=== PATIENT | male | born 1940 | race Caucasian/White ===

== ENCOUNTER 2019-12-15 09:00 | Outpatient (RCR) | payer MEDICARE, SELFPAY ==
[2019-09-16 09:19] VITALS: PULSE 67
--- NOTE | 2019-10-25 15:57 | PCCPR ---
Dr Manley's office Responded they reviewed the rhythm strips sent and want us to continue to monitor not changes at this time.
--- NOTE | 2019-11-08 09:22 | PCCPR ---
Absent due to Cardioversion/ Release to resume rehab Release brooke from Dr Manley for Ander to resume rehab 11/14/19
== END 2019-12-15 23:59 | disposition home or self-care (01) ==
LOC: ANHCPREHAB 09:00
PROVIDERS: PCP Family Medicine
DX: Z95.1 Presence of aortocoronary bypass graft (principal)
CPT/HCPCS: 93798

== ENCOUNTER 2019-12-19 11:09 | Outpatient (RCR) | payer MEDICARE, SELFPAY | END 2019-12-19 12:13 | disposition home or self-care (01) | LOC: ANHCPREHAB 11:09 | PROVIDERS: PCP Family Medicine | DX: Z95.1 Presence of aortocoronary bypass graft (principal) | CPT/HCPCS: 93798 ==

== ENCOUNTER 2020-12-10 01:35 | Day surgery (SDC) | payer MEDICARE, SELFPAY ==
[2020-12-03 10:38] VITALS: BMI 31.2
[2020-12-10 06:55] VITALS: BP 147/55; PULSE 57; RESP 20; TEMP 36.6; O2SAT 100; BMI 31.5
[2020-12-10] MEDS: LACTATED RINGERS 1,000 ML 150 ML IV CONT (07:14)
--- NOTE | 2020-12-10 07:19 | WPDANESEPPF ---
Anes - Initial Pre Proc Eval Procedure: Operation Date: 12/10/20 08:00 Proposed Procedures p Screening Colonoscopy - Jericho Null MD Date/Time: 12/10/20 07:19 Surgeon: Jericho Null MD Pre Op Diagnosis: neoplasm screen, hx colon polyps Patient Data Age: 80 Gender: M Height: 1.83 m Weight: 105.5 kg Last Vital Signs Temp 36.6 C 12/10/20 06:55 Pulse 57 L 12/10/20 06:55 Resp 20 12/10/20 06:55 BP 147/55 H 12/10/20 06:55 Pulse Ox 100 12/10/20 06:55 Allergies Allergy/AdvReac Type Severity Reaction Status Date / Time atorvastatin AdvReac Intermediate Muscle pain Verified 12/10/20 06:52 Home Medications Medication Instructions Recorded Confirmed Type carvedilol 6.25 mg PO BID 09/16/19 12/10/20 History clorazepate dipotassium 7.5 mg PO BID PRN 09/16/19 12/10/20 History losartan 25 mg PO DAILY 10/20/19 12/10/20 History rosuvastatin 20 mg tablet 20 mg PO DAILY #90 tablet 09/26/20 12/10/20 Rx aspirin [Adult Aspirin] 81 mg PO DAILY 12/03/20 12/10/20 History docusate sodium [Colace] 100 mg PO DAILY 12/03/20 12/10/20 History pt-vb-bjjv-FA-Ca carb-vit K 1 tablet PO DAILY 12/03/20 12/10/20 History [Women's 50 Plus Multivit-Iron] rivaroxaban [Xarelto] 20 mg PO DAILY 12/03/20 12/10/20 History Patient hx anesthesia problems: none Family hx anesthesia problems: none Results Review: All pre-operative results and documents have been reviewed as part of the pre-operative evaluation. 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 Hx of CABG Family History Family History Father Family history of cardiovascular disease Hypertension Acute myocardial infarction Grandparent Diabetes mellitus Mother Patient's mother is Family history of malignant neoplasm of breast Other Family history of elevated blood lipids Social History Social History Smoking packs per day: 1 Smoking cigarettes per day: 20.0 Years smoked: 15 Smoking pack-years: 15.00 Smoking status: Former smoker Tobacco type: cigarettes Second hand tobacco smoke exposure: No Smoking end date: 02/09/74 Alcohol intake: current Drinks per week: 9 Alcohol use details: BEERS Substance use: never Substance use type: does not use Living arrangements: with family Spiritual care concerns: No Anes - Eval Final PreProcedure Day of Procedure 12/10/20 07:19 Patient weight: obese Heart: regular rate and rhythm Lungs: clear to auscultation Airway: Mallampati scale class II Neurological: alert and oriented Last oral intake: >/= 8 hours ASA classification: III Emergent: no Anesthetic plan: proceed Anesthesia type and monitoring: general GIVS and standard monitoring Results Review: All pre-operative results and documents have been reviewed as part of the pre-operative evaluation. Informed Consent: The patient's anesthetic plan and its attendant risks and benefits were discussed with the patient/family/POA. Questions were solicited and answers provided to the satisfaction of the patient/family/POA.
--- NOTE | 2020-12-10 07:51 | WPDGICN ---
Assessment and Plan Assessment and plan (1) Personal history of colonic polyps: Code(s): Z86.010 - Personal history of colonic polyps Status: Acute Assessment and Plan: Patient has a personal history of colon polyps. For this reason surveillance colonoscopy has been advised at intervals. Further recommendations will be given after endoscopy. High-fiber diet suggested. GI Consult Note Consult date/time: 12/10/20 07:51 HPI: Getachew Lyon is a 80 year old male Presents for screening colonoscopy. Patient has a distant history of colon polyps. Reports that his current weight appetite and bowel movements are normal. He denies abdominal pain. He has had no bleeding. Does have a past history of perforation of the colon apparently from diverticulitis. This required resection Of a portion of his colon. Most recent colonoscopy 2013 revealed no evidence of colon polyps. 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 Diverticulosis Former smoker quit 1974 Herpes zoster without complication Osteitis deformans of multiple sites Recurrent incisional hernia Spinal stenosis, lumbar region, with neurogenic claudication (02/16/18) Ventral hernia without obstruction or gangrene Surgical History Surgical History Colostomy status History of 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 Hx of CABG Family History Family History Father Family history of cardiovascular disease Hypertension Acute myocardial infarction Grandparent Diabetes mellitus Mother Patient's mother is Family history of malignant neoplasm of breast Other Family history of elevated blood lipids Social History Social History Smoking packs per day: 1 Smoking cigarettes per day: 20.0 Years smoked: 15 Smoking pack-years: 15.00 Smoking status: Former smoker Tobacco type: cigarettes Second hand tobacco smoke exposure: No Smoking end date: 02/09/74 Alcohol intake: current Drinks per week: 9 Alcohol use details: BEERS Substance use: never Substance use type: does not use Living arrangements: with family Spiritual care concerns: No Meds Home Medications and Allergies Home Medications Medication Instructions Recorded Confirmed Type carvedilol 6.25 mg PO BID 09/16/19 12/10/20 History clorazepate dipotassium 7.5 mg PO BID PRN 09/16/19 12/10/20 History losartan 25 mg PO DAILY 10/20/19 12/10/20 History rosuvastatin 20 mg tablet 20 mg PO DAILY #90 tablet 09/26/20 12/10/20 Rx aspirin [Adult Aspirin] 81 mg PO DAILY 12/03/20 12/10/20 History docusate sodium [Colace] 100 mg PO DAILY 12/03/20 12/10/20 History ow-ni-jkto-FA-Ca carb-vit K 1 tablet PO DAILY 12/03/20 12/10/20 History [Women's 50 Plus Multivit-Iron] rivaroxaban [Xarelto] 20 mg PO DAILY 12/03/20 12/10/20 History Allergies Allergy/AdvReac Type Severity Reaction Status Date / Time atorvastatin AdvReac Intermediate Muscle pain Verified 12/10/20 06:52 Vital Signs Vital Signs - 24 hr 12/10/20 06:55 Temperature 97.8 F Pulse Rate 57 L Respiratory Rate 20 Blood Pressure 147/55 H Pulse Oximetry 100 Exam Narrative: physical exam reveals patient to be alert. Vital signs stable. HEENT exam is unremarkable. Patient is anicteric. Lungs are clear to auscultation and percussion. Heart is without murmur or extra sounds. Abdominal exam bowel sounds are present soft nontender with no organomegaly. Digital external rectal exam is normal.
[2020-12-10 08:17] VITALS: BP 87/49; PULSE 55; RESP 20; O2SAT 96
[2020-12-10 08:27] VITALS: BP 101/59; PULSE 53; RESP 20; O2SAT 96
[2020-12-10 08:36] VITALS: BP 131/53; PULSE 61; RESP 20; O2SAT 98
== END 2020-12-10 08:45 | disposition home or self-care (01) ==
PROVIDERS: PCP Family Medicine; Visit Provider Internal Medicine Gastroenterology
PROC: 0DJD8ZZ Inspection of Lower Intestinal Tract, Via Natural or Artificial Opening Endoscopic (ICD-10-PCS; CPT 45378; principal; 2020-12-10 08:00)
DX: Z12.11 Encounter for screening for malignant neoplasm of colon (principal); D12.5 Benign neoplasm of sigmoid colon; Z98.0 Intestinal bypass and anastomosis status; K57.30 Diverticulosis of large intestine without perforation or abscess without bleeding; K64.8 Other hemorrhoids; I25.118 Atherosclerotic heart disease of native coronary artery with other forms of angina pectoris; Z87.891 Personal history of nicotine dependence; M88.9 Osteitis deformans of unspecified bone; M48.061 Spinal stenosis, lumbar region without neurogenic claudication; K43.9 Ventral hernia without obstruction or gangrene; Z95.1 Presence of aortocoronary bypass graft; Z93.3 Colostomy status; Z79.01 Long term (current) use of anticoagulants; Z79.82 Long term (current) use of aspirin; E66.9 Obesity, unspecified; Z68.31 Body mass index [BMI] 31.0-31.9, adult
CPT/HCPCS: 45385; 88305; J2704; J7120

== ENCOUNTER 2022-01-23 11:03 | Outpatient (CLI) | payer MEDICARE, SELFPAY ==
--- NOTE | 2022-02-04 17:22 | P.PCNHOL_ITS ---
Holter/Event Monitor Holter/Event Monitor Date of procedure: 02/04/22 Holter/Event Procedure: 24 Hr Holter Monitor Diagnosis: Paroxysmal atrial fibrillation Indications: Paroxysmal atrial fibrillation Image/Tracing Quality: Acceptable Finding: Underlying rhythm is persistent atrial fibrillation with controlled ventricular response average heart rate 54 beats per minute maximum 108 beats per minute occurring at 9:50 a.m. minimum heart rate 22 beats per minute occurring at 5:03 a.m.. Frequent ventricular ectopy versus aberrant conduction totaling 4330 which is 5.7% burden with one 3 beat run of ventricular tachycardia. Longest RR interval was 3.3 seconds occurring at 4:32 a.m. while in atrial fibrillation. N o other prolonged pauses or high-grade AV blocks identified. No symptoms returned in conjunction with this study. Sinus rhythm was not appreciated nor was atrial flutter. Ventricular ectopy had at least 2 different morphologies. Conclusion: Persistent atrial fibrillation with overall controlled heart rate with periods of rapid ventricular response. Frequent ventricular ectopy versus aberrant conduction with varying morphology as noted above with a 3 beat run of ventricular tachycardia. Clinical correlation advised.
== END 2022-01-23 11:04 | disposition home or self-care (01) ==
LOC: ANHCARD 11:06
PROVIDERS: PCP Family Medicine
DX: I48.0 Paroxysmal atrial fibrillation (principal)
CPT/HCPCS: 93225; 93226

== ENCOUNTER 2023-01-30 14:14 | Emergency (ER) | payer MEDICARE, SELFPAY ==
--- NOTE | ~2023-01-30 | XR_ITS ---
EXAMINATION: XR hand LT min 3V DATE: 01/30/2023 14:48 INDICATION: Nontraumatic pain at the first metacarpophalangeal joint TECHNIQUE: Posteroanterior, oblique and lateral views of the left and were obtained. COMPARISON: None. FINDINGS: bone alignment is normal. No fracture. Polyarticular osteoarthritis at the left hand and wrist, sever e at the first metacarpophalangeal and fifth distal interphalangeal joints, moderate severity at the midcarpal, first, second and fifth metacarpophalangeal and majority of the remaining interphalangeal joints. Mild osteoarthritis at the left wrist and remaining joints of the hand. Subarticular lucenci es at the trapezium and at the head of the third middle phalanx could represent osteoarthritis relate d subchondral cysts although differential would include erosions given the reported history of gout. IMPRESSION: 1. 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 No acute osseous abnormality. Reviewed, dictated and finalized at location A. RTISING MANAGER IMPRESSION: 1. 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 No acute osseous a bnormality.
[2023-01-30 14:27] VITALS: BP 119/55; PULSE 65; RESP 16; TEMP 36.6; O2SAT 100
--- NOTE | 2023-01-30 14:31 | ED.EXTPRO ---
HPI - Extremity Problem General Chief complaint: Extremity Problem,Nontraumatic Stated complaint: Left Hand Pain Source: patient Mode of arrival: ambulatory Limitations: no limitations History of Present Illness HPI Narrative: 82 y/o male presented for c/o left hand and thumb pain since yesterday. Denies injury or overuse. States he had brief pain in the area 2 weeks ago after golfing, which had improved. Then yesterday after drinking 2 beers he started with the hand pain and swelling. Denies numbness, tingling, weakness of the hand. Patient is right-hand dominant. History of gout. Related Data Home Medications Medication Instructions Recorded Confirmed losartan 25 mg tablet 25 mg PO DAILY 10/20/19 01/30/23 aspirin 81 mg tablet 81 mg PO DAILY 12/03/20 01/30/23 docusate sodium 100 mg capsule 100 mg PO DAILY 12/03/20 01/30/23 (Colace) rivaroxaban 20 mg tablet (Xarelto) 20 mg PO DAILY 12/03/20 01/30/23 atorvastatin 20 mg tablet 20 mg PO DAILY 01/30/23 01/30/23 metoprolol succinate 50 mg 50 mg PO DAILY 01/30/23 01/30/23 tablet,extended release 24 hr pediatric hyzfcfvq-gzdy-qgg 1 tablet PO DAILY 01/30/23 01/30/23 (Multi-Vitamins with Iron chewable tablet) Allergies Allergy/AdvReac Type Severity Reaction Status Date / Time atorvastatin AdvReac Intermediate Muscle pain Verified 01/30/23 14:22 Review of Systems Review of Systems: CONSTITUTIONAL: Denies body aches, fever, chills EYES: Denies visual changes ENT: Denies rhinorrhea, congestion CARDIOVASCULAR: Denies chest pain, palpitations, or edema. RESPIRATORY: Denies cough or dyspnea. GASTROINTESTINAL: Denies abdominal pain, nausea, vomiting, or diarrhea. SKIN: Denies rash, itching, or wounds. MUSCULOSKELETAL: Reports left hand pain had swelling denies back pain, or myalgia. NEUROLOGIC: Denies headache, numbness, tingling, or weakness. 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 Hx of CABG Family History Family History Father Family history of cardiovascular disease Hypertension Acute myocardial infarction Grandparent Diabetes mellitus Mother Patient's mother is Family history of malignant neoplasm of breast Other Family history of elevated blood lipids Social History Social History Smoking packs per day: 1 Smoking cigarettes per day: 20.0 Years smoked: 15 Smoking pack-years: 15.00 Smoking status: Former smoker Tobacco type: cigarettes Second hand tobacco smoke exposure: No Smoking end date: 02/09/74 Alcohol intake: current Drinks per week: 9 Alcohol use details: BRIDGETT Substance use: never Substance use type: does not use Living arrangements: with family Spiritual care concerns: No Comments At time of signature, I have reviewed and agree with nursing past medical, surgical, social and family history unless otherwise noted. Please see nursing chart for further information. There is no relevant family history pertinent to the presenting complaint Exam Narrative: GENERAL: Well-appearing CHEST: Speaks in full sentences. No respiratory distress. HEART: Regular rate and rhythm. Normal and equal
== END 2023-01-30 15:25 | disposition home or self-care (01) ==
PROVIDERS: Emergency Provider Nurse Practitioner Family; PCP Family Medicine
DX: M25.542 Pain in joints of left hand (principal); Z79.899 Other long term (current) drug therapy; Z79.01 Long term (current) use of anticoagulants; Z79.82 Long term (current) use of aspirin; Z87.891 Personal history of nicotine dependence
CPT/HCPCS: 73130; 99213; G0463

== ENCOUNTER 2023-02-18 11:01 | Outpatient (CLI) | payer MEDICARE, SELFPAY ==
[2023-02-18 17:55] LABS: Basophils Percent Auto 0.5 % (0.2-1.2); Eosinophils Absolute Auto 0.1 K/mm3 (0-0.3); Eosinophils Percent Auto 3.2 % (0-4.4); Hematocrit 43.6 % (42.0-52.0); Hemoglobin 13.9 g/dL (14.0-18.0); Immature Granulocyte Absolute 0.02 K/mm3 (0.00-0.031); Immature Granulocyte Percent A 0.5 % (0-0.5); Lymphocytes Absolute Auto 1.19 K/mm3 (0.9-3.2); Lymphocytes Percent Auto 26.8 % (18.3-44.2); Mean Corpuscular HGB Conc 31.9 g/dl (32-36); Mean Corpuscular Hemoglobin 32.4 pg (26-34); Mean Corpuscular Volume 101.6 fl (80-100); Mean Platelet Volume 10.4 fl (7.4-10.4); Monocytes Absolute Auto 0.7 K/mm3 (0.1-0.6); Monocytes Percent Auto 15.5 % (2.6-8.5); Neutrophils Absolute Auto 2.4 K/mm3 (1.3-6.7); Neutrophils Percent Auto 53.5 % (45.5-73.1); Platelet Count Result 191 k/mm3 (150-375); Red Blood Count 4.29 M/mm3 (4.6-6.20); Red Cell Distribution Width 14.5 % (11.5-14.5); White Blood Count 4.4 K/mm3 (4.5-10.0)
[2023-02-18 19:26] LABS: Alanine Aminotransferase 25 U/L (6-50); Albumin Level 4.2 g/dL (3.5-5.1); Alkaline Phosphatase 218 U/L (38-126); Anion Gap 5 mmol/L (8-16); Aspartate Amino Transferase 45 U/L (17-59); Bilirubin,Total 1.5 mg/dL (0.2-1.3); Blood Urea Nitrogen 28 mg/dL (9-20); Calcium 9.4 mg/dL (8.4-10.2); Carbon Dioxide 30 mmol/L (22-30); Chloride 104 mmol/L (98-107); Cholesterol 189 mg/dL (0-200); Estimated Glomerular Filt Rate > 60; Glucose 89 mg/dL (65-110); HDL Direct 62 mg/dL; Potassium 4.4 mmol/L (3.4-5.0); Sodium 139 mmol/L (137-145); Triglycerides 75 mg/dL (<150); Uric Acid 8.7 mg/dL (3.5-8.5)
[2023-02-18 19:37] LABS: LDL Cholesterol Direct 96 mg/dL
== END 2023-02-18 11:02 | disposition home or self-care (01) ==
PROVIDERS: PCP Family Medicine; Visit Provider Family Medicine
DX: I25.5 Ischemic cardiomyopathy (principal); I42.0 Dilated cardiomyopathy; M10.9 Gout, unspecified
CPT/HCPCS: 36415; 80053; 80061; 82607; 84550; 85025

== ENCOUNTER 2023-03-19 14:15 | Outpatient (RCR) | payer MEDICARE, SELFPAY ==
--- NOTE | 2023-02-24 15:29 | OTOPEVAL1 ---
Assessment and note entered by Dhaval Morocho, KARLA/Erica, CHT Evaluation Information Diagnosis left forearm tendon injury Subjective Information Patient reports onset of left wrist/hand pain about 5 weeks ago when playing golf. The pain persisted and his hand became swollen and bruised. He continues to have pain and difficulty with gripping, lifting, opening a jar, and is not able to play golf right now. He states 2 weeks ago he was not able to hold a golf club. He is right handed. Reported Pain Level Pain Score: (L) wrist/hand 1/10 at rest Never gets to 0/10 Assessment OT Clinical Summary Patient referred to OT with left hand/wrist pain after an incident while playing golf. Since then he has been having difficulty with gross gripping, noting most of his pain when trying to make a tight fist. He presents with intact wrist strength , but decreased manager print strength and pain with gripping tasks. Pain when stressing the finger flexors but not wrist flexors. Issued HEP for tendon gliding and light manager print strengthening. Continued follow up indicated to maximize functional pain-free use of his left hand with the goal of returning to golf. Plan of Care Interventions Therapeutic Exercise,Manual Therapy,Therapeutic Activities,Hot Pack/Cold Pack,Paraffin OT Services Indicated Yes Treatment Frequency and 1x/week for 4 weeks Duration These treatments will address the objective and functional deficits as defined above. The patient will be advanced safely and appropriately in order for the patient to progress towards his/her prior level of function. Additional exercises will be introduced and as well as a comprehensive home exercise program upon discharge, if needed, ?to ensure carryover of functional gains achieved in the clinic. This treatment plan has been reviewed and agreement upon by the patient.
--- NOTE | 2023-03-19 14:56 | OTOPDC ---
Assessment and note entered by KARLA Mon/Erica, CHT Discharge Summary 03/19/23 Diagnosis left forearm tendon injury Subjective Information Patient has participated in 3 OT sessions for left hand/wrist pain. He reports he played golf the other day and didn't think about his hand once. He reports he is now able to make a fist and is having no pain. He reports being ready to discharge from therapy. Reported Pain Level Pain Score 0: Self Report Additional Pain Score Comments Patient has progressed to having no pain. Assessment OT Clinical Summary Patient referred to OT with left hand/wrist pain after an incident while playing golf. Patient presents today with return of ROM and strength. He no longer is having pain with ADLs. Discussed continuing with hand strengthening with his theraputty HEP. D/C OT with therapy goals met. Plan of Care OT Services Indicated No
== END 2023-03-19 16:00 | disposition home or self-care (01) ==
LOC: ANHGOSHOT 14:15
PROVIDERS: PCP Family Medicine; Visit Provider Family Medicine
DX: R29.898 Other symptoms and signs involving the musculoskeletal system (principal)
CPT/HCPCS: 97110; 97165

== ENCOUNTER 2023-03-25 11:05 | Outpatient (CLI) | payer MEDICARE, SELFPAY ==
--- NOTE | 2023-03-31 12:19 | WPDHOLTEREM ---
Holter/Event Monitor Holter/Event Monitor Date of procedure: 03/25/23 Holter/Event Procedure: 48 Hr Holter Monitor Indications: Frequent PVC Conclusion: 1. 48 hour holter monitor on 03/25/23. 2. Predominant rhythm is sinus or ectopic atrial rhythm. HR range 48-113 bpm; average 63 bpm. 3. There are 948 premature supraventricular complexes, 13 supraventricular couplets and 6 supraventricular bigeminy. No supraventricular tachycardia. 4. There are 12,008 premature ventricular complexes, 2,132 ventricular couplets, 282 ventricular triplets, 8,859 ventricular bigeminy, and 6,789 ventricular trigeminy. There are 27 episodes of ventricular tachycardia, fastest at 197 bpm and longest lasting 21 beats. 5. No sinoatrial or atrioventricular blocks. No significant pauses greater than 2 seconds. 6. No symptoms available for correlation.
== END 2023-03-25 11:06 | disposition home or self-care (01) ==
PROVIDERS: PCP Family Medicine
DX: I49.3 Ventricular premature depolarization (principal)
CPT/HCPCS: 93225; 93226

== ENCOUNTER 2024-05-12 01:59 | Day surgery (SDC) | payer MEDICARE, SELFPAY ==
[2024-05-02 13:10] VITALS: BMI 31.4
--- NOTE | 2024-05-03 14:02 | SUR.PREOP ---
Spoke with patient's regarding the patient's Xeralto. Last dose to be taken on 05/09/2024, endoscopist will notify when to resume.
--- OUTSIDE RECORDS SUMMARY | 2024-05-12 02:01 | XMS_ITS | Clinical Summary ---
Author Organization [facility] Address [address] [place] [address] Care Team Providers Care Evaporator Operator Molasses Name Role Phone John Mccullough MD Unavailable [phone] Tabby Garcia MD Primary Care Provider [phone] [facility],non-owned Affiliates and Associated Physician Practices is amultiple site organization consisting of ambulatory clinics and hospital sitesin [place], [place], [place] and [place]. This disclosure is being madepursuant to the Care Everywhere program and may not contain all information available regarding this patient. Last updated 17.[facility] Allergies Active Allergy Reactions Criticality Noted Date Comments Other 03/26/2009 Seasonal--sneezing, watery eyes Medications * Be aware that medications may not be up to date on this document. Alwaysverify current medications with the patient. Medication Sig Dispensed Refills Start Date End Date Status MULTIVITAMIN PO Take by mouth daily with breakfast. Instructed patient to stop 1 week before surgery. Active ezetimibe (ZETIA) 10 MG tablet Take 10 mg by mouth daily with lunch. 10/03/2009 Active aspirin (ASPIRIN) 81 MG tablet Take 81 mg by mouth once daily. Active acetaminophen (TYLENOL) 325 MG tablet Take 650 mg by mouth every 6 hours as needed 08/10/2019 Active amiodarone (CORDARONE) 200 MG tablet Take 200 mg by mouth 2 times daily 10/19/2019 Active carvedilol (COREG) 3.125 MG tablet Take 6.25 mg by mouth 2 times daily 11/30/2019 Active Docusate Sodium (DSS) 100 MG Take 100 mg by mouth 2 times daily 08/10/2019 Active hydrocortisone (HYTONE) 2.5 % cream 04/25/2019 Acti ve losartan (COZAAR) 25 MG tablet Take 25 mg by mouth once daily 12/12/2019 Active Multiple Vitamin (DAILY-GRICEL) TABS Take 1 tablet by mouth once daily Active polyethylene glycol 3350 (MIRALAX) 17 GM/SCOOP powder Take 17 g by mouth every 12 hours as needed 08/10/2019 Active rivaroxaban (XARELTO) 20 MG tablet Take 20 mg by mouth 09/23/2019 Activ e rosuvastatin (CRESTOR) 10 MG tablet Take 10 mg by mouth Activ e Active Problems Problem Noted Date Diagnosed Date Osteoarthrosis involving lower leg 03/07/2014 Overview (05/05/2015): 2015 IMO Updt Knee joint replacement by other means 03/07/2014 DJD (degenerative joint disease) 01/16/2014 Immunizations Name Administration Dates Next Due PNEUMOCOCCAL PPSV23 04/10/2009 Family History Medical History Relation Name Comments Heart Failure Father Hypertension Father Relation Name Status Comments Father Social History Tobacco Use Types Packs/Day Years Used Date Smoking Tobacco: Former Cigarettes 1.5 15 0 02/09/1961 - 02/10/1976 Smokeless Tobacco: Never Alcohol Use Standard Drinks/Week Comments Yes 6.7 (1 standard drink = 0.6 oz p ure alcohol) 2-3 beers--socially Sex and Gender Information Value Date Recorded Sex Assigned at Not on file Gender Identity Not on file Sexual Orientation Not on file Last Filed Vital Signs Vital Sign Reading Time Taken Comments Blood Pressure 128/78 04/09/2020 1:01 PM DENTAL APPLIANCE MECHANIC Pulse 68 04/09/2020 1:01 PM DENTAL APPLIANCE MECHANIC Temperature 37.4 C (99.3 F) 01/19/2014 8:49 AM DENTAL APPLIANCE MECHANIC Respiratory Rate 18 01/19/2014 8:49 AM DENTAL APPLIANCE MECHANIC Oxygen Saturation 95% 01/19/2014 8:49 AM DENTAL APPLIANCE MECHANIC Inhaled Oxygen Concentration - - Weight 102.5 kg (226 lb) 04/09/2020 9:23 AM DENTAL APPLIANCE MECHANIC Height 185.4 cm (6' 1 ) 04/09/2020 9:23 AM DENTAL APPLIANCE MECHANIC Body Mass Index 29.82 04/09/2020 9:23 AM DENTAL APPLIANCE MECHANIC Plan of Treatment Health Maintenance Due Date Last Done Comments DTAP/TDAP/TD VACCINES (1 - Tdap) 11/30/1959 ZOSTER VACCINE (1 of 2) 1990 PNEUMOCOCCAL VACCINE 50+ (2 of 2 - PCV) 04/10/2010 04/10/2009 Respiratory Syncytial Virus (RSV) Vaccine Pt: or over 60 yrs (1 - 1-dose 75+ series) 11/30/2015 COVID-19 VACCINE (1 - 2023-2 5 season) 2023 DEPRESSION SCREENING 02/10/2024 MEDICARE AWV CALENDAR YEAR 2024 INFLUENZA VACCINE (Season Ended) 2024 11/23/19 20 HEPATITIS B VACCINE Aged Out No longe r eligible based on patient's age to complete this topic HIB VACCINE Aged Out No longer eligi ble based on patient's age to complete this topic HPV VACCINE Aged Out No longer eligi ble based on patient's age to complete this topic MENINGOCOCCAL (Group B) VACC INE SHARED DECISION-MAKING Aged Out No longer eligibl e based on patient's age to complete this topic MENINGOCOCCAL GROUPS A/C/Y/W VACCINE Aged Out No longer eligible b ased on patient's age to complete this topic Medical Devices Implanted Type Area Dyeing Machine Feeder Device Identifier Shelf Expiration Date Model / Serial / Lot Marvin Bone [place] H[place] Implanted:Qty: 1 on 01/16/2014 by John Mccullough MD at [facility] Left: [employer] 10/10/2015 [id number] / / [id number] Alis Corral [employer] Polyeth Med 34 X 9mm Implanted:Qty: 1 on 01/16/2014 by John Mccullough MD at [facility] Left: [employer] 12/09/2018 [id number] / / [id number] Tibial I Beam Fix Bar 83mm Implanted:Qty: 1 on 01/16/2014 by John Mccullough MD at [facility] Left: [employer] 02/09/2020 [id number] / / [id number] Ins Kn [place] Fem Cocr Intlok L 75mm Implanted:Qty: 1 on 01/16/2014 by John Mccullough MD at [facility] Left: [employer] 11/09/2023 [id number] / / [id number] Cassi Maharaj Brg 14mm X 83mm Implanted:Qty: 1 on 01/16/2014 by John Mccullough MD at [facility] Left: [employer] 11/08/2018 [id number] / / [id number] Advance Directives * Full Code (Latest Code Status on File) Date Activated Date Inactivated Comments 01/16/2014 10:39 AM 01/19/2014 12:31 PM * Full Code Date Activated Date Inactivated Comments 10/10/2009 8:21 AM 10/13/2009 11:52 PM Care Teams Evaporator Operator Molasses Relationship Specialty Start Date End Date Tabby Garcia MD [address] [place] [address] PCP - General Family Medicine 09/02/13 [place] [id number] [address] Orthopedic Surgery 09/02/13
--- OUTSIDE RECORDS SUMMARY | 2024-05-12 02:01 | XMS_ITS | Clinical Summary ---
Author Organization [employer] [facility] Alan Daniels Address [address] [place] [address] Phone Care Team Providers Care Display Director Name Role Phone Tabby Garcia MD Primary Care Provider [phone] Allergies Active Allergy Reactions Criticality Noted Date Comments Adhesive Rash Medium 10/08/2023 Medications multivitamin (DAILY-GRICEL) tablet Take 1 Tab by mouth daily. Active docusate sodium (COLACE) 100 mg capsule Take 1 Capsule (100 mg) by mouth 2 times daily. 08/10/2019 Active polyethylene glycol (MIRALAX) 17 gram Powder in Packet Take 1 Packet (17 Grams) by mouth every 12 hours as needed for Constipation . 08/10/2019 Active aspirin (ECOTRIN EC) 81 mg Tablet, Delayed Release (E.C.) Take 81 mg by mouth daily. Active allopurinoL (ZYLOPRIM) 300 mg tablet Take 300 mg by mouth daily. Active atorvastatin (LIPITOR) 20 mg tablet Take 1 Tablet (20 mg) by mouth daily. 90 Tablet 3 06/30/2023 Active furosemide (LASIX) 40 mg tablet Take 1 Tablet (40 mg) by mouth every other day. 90 Tablet 3 06/30/2023 Active metoprolol succinate (TOPROL XL) 50 mg Extended Release 24 hour tablet Take 1 tablet by mouth once daily 90 Tablet 3 07/21/2023 Active rivaroxaban (Xarelto) 20 mg Tablet Take 1 Tablet (20 mg) by mouth daily with supper. 90 Tablet 3 11/04/2023 Active predniSONE (DELTASONE) 10 mg tablet 08/11/2023 Active losartan (COZAAR) 25 mg tablet Take 1 tablet by mouth once daily 90 Tablet 3 04/08/2024 Active Active Problems Patient Care Coordination No te Formatting of this note migh t be different from the original. 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 AT [address] [place] [phone] Glenys Burrell NP SSS (sick sinus syndrome) (CMS/HCC) (Primary Dx); Frequent PVCs; H/O prior ablation treatment; Permanent atrial fibrillation (CMS/HCC); HFrEF (heart failure with reduced ejection fraction) (CMS/HCC); AICD (automatic cardioverter/defibril lator) present 05/09/2024 1:00 PM CDT Procedure visit [facility] AT [address] [place] [phone] Encounter for implantable defibrillator reprogramming or check (Primary Dx); Cardiomyopathy, unspecified type (CMS/HCC) 05/03/[address] [facility] - [facility] [address] [place] [address] Reji Manley MD 05/03/[address] [facility] At [address] [place] [phone] Reji Manley MD Surgical Clearance 04/07/[address] [facility] - [facility] [address] [place] [address] Reji Manley MD 02/29/[address] [facility] - [facility] [address] [place] [address] Reji Manley MD Surgical Clearance from Last 3 Months Immunizations Immunization Administration Dates Next Due (PFIZER JULIETA)(5-11 YRS PRIMA RY SERIES) COVID-19 VACCINE - EMERGENCY USE AUTHORIZATION, MRNA, JULIETA(PF) 10 MCG/0.2 ML IM SUSP 01/25/2022,12/27/2020,04/10/2020,2020 INFLUENZA VACCINE HIGH DOSE QUADRIVALENT 65 YR UP PF IM 11/17/2019 Influenza Seasonal Unspecifi ed Formulation IM 11/23/2019 Family History Medical History Relation Name Comments Heart Disease Father Breast Cancer Mother Relation Name Status Comments Father Mother Social History Tobacco Use Types Packs/Day Years Used Date Smoking Tobacco: Never Smokeless Tobacco: Never Tobacco Cessation:Counseling Given: Not Answered Alcohol Use Standard Drinks/Week Comments Yes 2 (1 standard drink = 0.6 oz pur e alcohol) Feeling Safe Answer Date Recorded Are you in a relationship wi th someone who hurts you emotionally and/or physically? No 07/30/2023 Food Insecurity Answer Date Recorded Social/Environmental Concerns No concerns Transportation Needs Answer Date Record ed Social/Environmental Concerns No concerns Housing Stability Answer Date Recorded Social/Environmental Concerns No concerns Utility Needs Answer Date Recorded Social/Environmental Concerns No concerns Sex and Gender Information Value Date Recorded Sex Assigned at Not on file Legal Sex Male 10:29 AM CDT Gender Identity Not on file Sexual Orientation Not on file Last Filed Vital Signs Vital Sign Reading Time Taken Comments Blood Pressure 104/60 05/09/2024 1:31 PM CDT Pulse 86 05/09/2024 1:31 PM CDT Temperature 37 C (98.6 F) 07/30/2023 4:46 PM CDT Respiratory Rate 20 07/30/2023 6:30 PM CDT Oxygen Saturation 98% 05/09/2024 1:31 PM CDT Inhaled Oxygen Concentration - - Weight 106.5 kg (234 lb 12.8 oz) 11/09/2023 1:06 PM CDT Height 185.4 cm (6' 1 ) 05/09/2024 1:31 PM CDT Body Mass Index 30.98 11/09/2023 1:06 PM CDT Plan of Treatment Upcoming Encounters Date Type Department Care Team (Late st Contact Info) Description 08/09/2024 7:15 AM CDT Procedure visit [facility] AT [address] [place] [phone] 11/08/2024 1:45 PM CDT Office Visit [facility] AT [address] [place] [phone] Efrain Galdamez MD [address] [place] [address] [address] [place] [address] Health Maintenance Due Date Last Done Comments DTAP/TDAP/TD VACCINES (1 - Tdap) 11/30/1959 ZOSTER VACCINE (1 of 2) 1990 PNEUMOCOCCAL VACCINE 50+ YEA RS (2 of 2 - PCV) 04/10/2010 04/10/2009 RSV VACCINE (60+ or ) (1 - 1-dose 75+ series) 11/30/2015 INFLUENZA VACCINE (#1) 2023 11/23/2019, 2019 COVID-19 Vaccine (1 - 2023-2 5 season) 2023 01/25/2022, 12/27/2020, 04/10/2020, Additional history exists Medical Devices Implanted Type Area Clinical Education Manager Device Identifier Shelf Expiration Date Model / Serial / Lot District Wire Chief Clip Surgiclip Iii Ti [facility] 9 [id number] - [id number] Implanted:Qty: 5 on 08/05/2019 by Barrett Frost MD at [facility] Clip N/A: Chest [employer] - COVIDIEN 03/11/2024 [id number] / / [id number] Clip Ligating Horizon Med Ti [id number] - Csc - [id number] Implanted:Qty: 3 on 08/05/2019 by Barrett Frost MD at [facility] Clip N/A: Chest TELEFLEX- WECK CLOSURE SYS 12/07/2023 [id number] / / [id number] Clip Ligating Horizon Sm Ti 885960 - Csc - [id number] Implanted:Qty: 3 on 08/05/2019 by Barrett Frost MD at [facility] Clip N/A: Chest TELEFLEX INC 11/02/2023 / / [id number] Dev Vns Vasc Clsr Vascade Mvp St [id number]-[id number] - [id number] Implanted:Qty: 1 on 06/02/2023 at [facility] Closure Device Right: Groin [employer] 03/17/2025 800-612C-10 U / / [id number] A Dev Vns Vasc Clsr Vascade Mvp St [id number] - [id number] Implanted:Qty: 1 on 06/02/2023 at [facility] Closure Device Right: Groin [employer] 03/17/2025 800-612C-10 U / / [id number] A Dev Vns Vasc Clsr Vascade Mvp St 875-370g-[id number] - [id number] Implanted:Qty: 1 on 06/02/2023 at [facility] Closure Device Right: Groin [employer] 03/17/2025 800-612C-10 U / / [id number] A Dev Vns Vasc Clsr Vascade Mvp St 149-827a-[id number] - [id number] Implanted:Qty: 1 on 06/02/2023 at [facility] Closure Device Left: Groin [employer] 03/17/2025 800-612C-10 U / / [id number] A Defib Icd [place] Xt Mri [id number] Df4 Dual Chmbr Surescan Hnrn2s0 - [id number] Implanted:Qty: 1 on 07/30/2023 at [facility] Defibrillator Left: Chest [employer]- CARD RHYTHM MGMT 11/22/2024 [id number] / [id number] / Hemostat Shahid Ah Powder 3gm Fq7650-Hnw - [id number] Implanted:Qty: 1 on 05/20/2022 by Robert Garcia MD at [facility] Hemostatic Left: Heart BARD DAVOL 10/06/2026 [id number] / / [id number] Hemostat Shahid Ah Powder 3gm [id number] - [id number] Implanted:Qty: 1 on 07/30/2023 by Robert Garcia MD at [facility] Hemostatic Left: Chest BARD DAVOL 11/07/2027 [id number] / / [id number] Lead Selectsecure Mri Surescan 69cm Endocardical Pacing [id number] - [id number] Implanted:Qty: 1 on 05/20/2022 by Robert Garcia MD at [facility] Lead N/A: Heart [employer]- CARD RHYTHM MGMT 02/28/2024 [id number] / [id number] / Lead Sprint Quattro Secure 62cm 2410x24 - Csc - [id number] Implanted:Qty: 1 on 07/30/2023 by Robert Garcia MD at [facility] Lead N/A: Heart [employer]- CRM - BULK BUY 03/10/2025 [id number] / [id number] / Marker Anastomark Cabg Silicone Fm-Pm-1 - [id number] Implanted:Qty: 2 on 08/05/2019 by Barrett Frost MD at [facility] Other N/A: Heart Vyyo INC 12/09/2021 FM-PM-1 / / [id number] Pledgets Implanted:Qty: 2 on 08/05/2019 by Barrett Frost MD at [facility] Other N/A: Heart 03/11/2023 [id number] / / [id number] Description:charge in suppli es Pacemaker Carmen Freeman Ipg Dual Chmbr Surescan [id number] - [id number] Implanted:Qty: 1 on 05/20/2022 by Robert Garcia MD at [facility] Explanted:07/11 by Robert Garcia MD (Quantity not on file) Pacemaker N/A: Heart [employer]- CRM - BULK BUY 07/07/2023 [id number] / [id number] / Procedures Procedure Name Priority Date/Time Associated Diagnosis Comments IL PRGRMG EVAL IMPLANTABLE IN PERSON MULTI LEAD DFB Routine 05/09/2024 1:01 PM CDT Encounter for implantable defibrillator reprogramming or check Cardiomyopathy, unspecified type (CMS/HCC) from Last 3 Months Results * IL PRGRMG EVAL IMPLANTABLE IN PERSON MULTI LEAD DFB (05/09/2024 1:01 PM CDT) 05/09/2024 1:01 PM CDT Narrative INTERFACE SYSTEM - 05/09/2024 1:59 PM CDT Reji Kapadia, DAVID 05/09/2024 2:00 PM ICD interrogation: LBBAP lead plugged into RA port. AP = LBBAP. Appropriate REGULATED PROGRAM MANAGER-D function. Battery: 10.4 yrs. Charge time: 3.7 sec. 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 LBBAP 97.9% / RVP 0.3% Since remote 02/08/2024: 1 NSVT episode lasting 3 sec. EF 35% as of 12/08/2023. Per chart, patient takes Xarelto, metoprolol, aspirin. Scheduled for remote in 3 mos. RV amplitude set to 2V Monitor (3.5 Adaptive). RR ADL Response set to 5 (4). RR Activity Acceleration set to 15 sec (30). us Robert Garcia MD CARDIAC SERVICES ORDERABLES Ed ited Result - Final INTERFACE SYSTEM Refer to clinic/hospital department from Last 3 Months Insurance RX [employer] RX Member Subscriber Plan / Payer (Ef fective 2019-Present) Name:Getachew Lyon Relation to Subscriber:Self Name:Getachew Lyon Subscriber ID:Not on file Payer ID:Not on file Group ID:[id number] Type:RX Medicare Part D Address: [place] [place] AETNA Medicare Part [place] [address] AETNA O [facility] Advance Directives For more information, please contact: [phone] Documents on File Type Date Recorded Patient Sole Painter Expl anation Advance Directive Living Will 08/11/2019 7:07 PM Advance Directive Living Will Advance Directive POA 08/11/2019 7:06 PM Ad jerez Directive POA * Full Code (Latest Code Status on File) Date Activated Date Inactivated Comments 07/30/2023 4:41 PM 07/30/2023 9:29 PM * Full Code Date Activated Date Inactivated Comments 06/02/2023 9:22 AM 06/03/2023 1:32 PM * Full Code Date Activated Date Inactivated Comments 05/19/2023 8:48 PM 05/21/2023 7:33 PM * Full Code Date Activated Date Inactivated Comments 11/07/2019 9:38 AM 11/08/2019 3:10 AM * Full Code Date Activated Date Inactivated Comments 08/05/2019 11:01 AM 08/10/2019 3:45 PM Care Teams Display Director Relationship Specialty Start Date End Date Tabby Garcia MD PCP - General Family Practice 05/23/14
--- OUTSIDE RECORDS SUMMARY | 2024-05-12 02:01 | XMS_ITS | Encounter Summary ---
Author Organization [facility] Health Address [address] [place] [address] Care Team Providers Care Maintenance Job Titles Name Role Phone John Mccullough MD Unavailable [phone] Tabby Garcia MD Primary Care Provider [phone] Encounter Details Date Type Department Care Team (Late st Contact Info) Description 10/02/2022 Lab Requisition [facility] - DermPath Lab [address] [place] [address] Rafael Palacios MD [address] [place] [address] Social History Tobacco Use Types Packs/Day Years Used Date Smoking Tobacco: Former Cigarettes 1.5 15 0 02/09/1961 - 02/10/1976 Smokeless Tobacco: Never Alcohol Use Standard Drinks/Week Comments Yes 6.7 (1 standard drink = 0.6 oz p ure alcohol) 2-3 beers--socially Sex and Gender Information Value Date Recorded Sex Assigned at Not on file Gender Identity Not on file Sexual Orientation Not on file documented as of this encounter Functional Status Functional Status Response Date of Assess ment Is person deaf or have serious hearing difficult y? No 01/16/2014 Is person blind or have serious difficulty seein g? No 01/16/2014 Does person have serious dif ficulty walking/climbing stairs? No 01/16/2014 Does person have difficulty dressing/bathing? No 01/16/2014 Does person have difficulty doing errands alone? No 01/16/2014 Cognitive Status Response Date of Assessm ent Does person have difficulty concentrating/remembering/making decisions? No 01/16/2014 documented as of this encounter Plan of Treatment Not on file documented as of this encounter Procedures Procedure Name Priority Date/Time Associated Diagnosis Comments DERMATOPATHOLOGY Routine 10/01/2022 12:0 0 AM CDT documented in this encounter Results * DERMATOPATHOLOGY (10/01/2022 12:00 AM CDT) Case Report Dermatopathology Report Case: [id number] Authorizing Provider: Rafael Palacios MD Collected: 10/01/2022 12:00 AM Ordering Location: [facility] DermPath Lab Received: 10/03/2022 08:29 AM Pathologist: Karina Soliz MD Specimen: Skin, left antihelix 3 4:17 PM CDT DERMATOPATHOLOGY LABORATORY Final Diagnosis Specimen A. SKIN, left antihelix: ACTINIC KERATOSIS, PIGMENTED (L57.0) SOLAR LENTIGO (L81.4) (see microscopic description) 3 4:17 PM CDT DERMATOPATHOLOGY LABORATORY Clinical History R/O SK vs Lentigo Vs Other 3 4:17 PM CDT DERMATOPATHOLOGY LABORATORY Gross Description Specimen A: Received is one formalin filled container labeled with the patient's name and designated left antihelix. The specimen consists of a shave biopsy measuring 16x7x1 mm. Jar 0. 3 4:17 PM CDT DERMATOPATHOLOGY LABORATORY Microscopic Description Specimen A. SKIN, left antihelix: There is alternating orthokeratosis and parakeratosis. Along the undersurface of the epidermis, there are buds of atypical keratinocytes in a disorderly arrangement. There is prominent pigmentation in some of the keratinocytes. Mib-1 stain highlights proliferating keratinocytes within the lower half of the epidermis in these areas. There is a slight increase in epidermal thickness with lentiginous buds of hyperpigmented keratinocytes. The number of melanocytes, highlighted by MART-1/Melan-A immunohistochemical staining, is only mildly increased. In the dermis, there is basophilic degeneration of elastic fibers. 3 4:17 PM CDT DERMATOPATHOLOGY LABORATORY Disclaimer An external and internal positive and negative controls are appropriate for the histochemical, immunohistochemical and immunofluorescence stain(s) in this case (if any), except where stated explicitly. The performance characteristics of the stain(s) cited in this report were developed and its performance characteristic determined by the Dermatopathology Laboratory at [facility], directed by Dr. Dashawn Lira. These tests need not be, and therefore are not, approved by the [place] Food and Drug Administration. The tests are used for clinical purposes. Billing Codes Specimen Charges Stain Charges 21619 1 25486 55332 1 1 3 4:17 PM CDT DERMATOPATHOLOGY LABORATORY Embedded Images 3 4:17 PM CDT DERMATOPATHOLOGY LABORATORY Pathology/Cytolog y TISSUE SPECIMEN FROM SKIN / Unknown 10/01/2022 10/03/2022 8:29 AM CDT Rafael Palacios MD LAB - PATHOLOGY/CYTO LOGY ORDERABLES DERMATOPATHOLOGY LABORATORY [facility] - Department of Dermatology [address], [address] [phone] documented in this encounter Visit Diagnoses Not on filedocumented in this encounter Care Teams Maintenance Job Titles Relationship Specialty Start Date End Date Tabby Garcia MD [address] [phone] PCP - General Family Medicine 09/02/13 [place] [address] [address] Orthopedic Surgery 09/02/13 documented as of this encounter
--- OUTSIDE RECORDS SUMMARY | 2024-05-12 02:01 | XMS_ITS | Encounter Summary ---
Author Organization [facility] Health Address [address] [place] [address] Care Team Providers Care Finished Yarn Examiner Name Role Phone John Mccullough MD Unavailable [phone] Tabby Garcia MD Primary Care Provider [phone] Encounter Details Date Type Department Care Team (Late st Contact Info) Description 03/07/2020 Lab Requisition [facility] Care DermPath Lab [address] [address] [place] [address] Rafael Palacios MD [address] [place] [address] Social History Tobacco Use Types [...] Priority Date/Time Associated Diagnosis Comments DERMATOPATHOLOGY Routine 03/06/2020 12:0 0 AM CIGARETTE PAPER TESTER documented in this encounter Results * DERMATOPATHOLOGY (03/06/2020 12:00 AM CIGARETTE PAPER TESTER) Case Report Dermatopathology Report Case: [id number] Authorizing Provider: Rafael Palacios MD Collected: 03/06/2020 12:00 AM Ordering Location: [facility] DermPath Lab Received: 03/07/2020 12:32 PM Pathologist: Yina Lira MD Specimen: Skin, left helix (mid) rim 2:20 PM CIGARETTE PAPER TESTER DERMATOPATHOLOGY LABORATORY Final Diagnosis Specimen A. 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 2:20 PM [facility] DERMATOPATHOLOGY LABORATORY Gross Description Specimen A: Received is one formalin filled container labeled with the patient's name and designated left helix (mid) rim. The specimen consists of a shave biopsy (2 pieces) measuring 1u4d0dz & 3n8i9oz. Jar 0. 1 2:20 PM [facility] DERMATOPATHOLOGY LABORATORY Microscopic Description Specimen A. SKIN, left helix (mid) rim: Arising in the epidermis and extending into the dermis there are irregularly shaped aggregates of keratinocytes showing evidence of premature cornification. 2:20 PM [facility] DERMATOPATHOLOGY LABORATORY Disclaimer An external and internal positive and negative controls are appropriate for the histochemical, immunohistochemical and immunofluorescence stain(s) in this case (if any), except where stated explicitly. The performance characteristics of the stain(s) cited in this report were developed and its performance characteristic determined by the Dermatopathology Laboratory at [facility], directed by Dr. Dashawn Lira. These tests need not be, and therefore are not, approved by the [place] Food and Drug Administration. The tests are used for clinical purposes. Billing Codes Specimen Charges Stain Charges 02824 1 1 2:20 PM CIGARETTE PAPER TESTER DERMATOPATHOLOGY LABORATORY Embedded Images 1 2:20 PM CIGARETTE PAPER TESTER DERMATOPATHOLOGY LABORATORY Pathology/Cytolog y TISSUE SPECIMEN FROM SKIN / Unknown 03/06/2020 03/07/2020 12:32 PM CIGARETTE PAPER TESTER Rafael Palacios MD LAB - PATHOLOGY/CYTO LOGY ORDERABLES DERMATOPATHOLOGY LABORATORY [facility] - Department of Dermatology [address] [phone] documented in this encounter Visit Diagnoses Not on filedocumented in this encounter Care Teams Finished Yarn Examiner Relationship Specialty Start Date End Date Tabby Garcia MD [address] [place] [phone] PCP - General Family Medicine 09/02/13 [place] [address] [address] Orthopedic Surgery 09/02/13 documented as of this encounter
[2024-05-12 12:38] VITALS: BP 116/71; PULSE 102; RESP 16; TEMP 36.2; O2SAT 100; BMI 31.0
[2024-05-12] MEDS: LACTATED RINGERS 1,000 ML 150 ML IV CONT (12:48)
--- NOTE | 2024-05-12 13:36 | PM.HPGS ---
History of Present Illness History of Present Illness Consent: Risks, benefits, and alternatives have been discussed and questions answered. Patient agrees to proceed with procedure. Chief complaint: Fecal abnormalities Narrative: Getachew Lyon is a 83 year old male with polyp in 2020, recent + cologuard Review of Systems Review of Systems: All systems reviewed & are unremarkable except as noted in HPI and below PMFSH Past Medical History Medical History (Updated 03/10/24 @ 10:29 by Pepe Webb, MAIL PROCESSING MACHINE OPERATOR) Coronary artery disease without angina pectoris Gout Former smoker quit 1974 Arthritis of lumbosacral spine Diverticulosis Herpes zoster without complication Osteitis deformans of multiple sites Recurrent incisional hernia Spinal stenosis, lumbar region, with neurogenic claudication (02/16/18) Ventral hernia without obstruction or gangrene Surgical History Surgical History (Updated 11/25/23 @ 11:59 by Kathy Treviño NP) Hx of CABG (~04/2021) 3-vessel History of 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 Family History Family History Father Family history of cardiovascular disease Hypertension Acute myocardial infarction Grandparent Diabetes mellitus Mother Patient's mother is Family history of malignant neoplasm of breast Other Family history of elevated blood lipids Social History Social History Smoking packs per day: 1 Smoking cigarettes per day: 20.0 Years smoked: 15 Smoking pack-years: 15.00 Smoking status: Former smoker (quit 46 years ago) Tobacco type: cigarettes Second hand tobacco smoke exposure: No Smoking end date: 02/09/74 Alcohol intake: current Drinks per week: 9 Alcohol use details: BEERS Substance use: never Substance use type: does not use Do You Feel Safe in your Home?: Yes Lack of Transportation: No Lack of Food: Never True Current Housing: I Have Housing Concerned About Future Housing: No Difficulty Paying Gas/Electric Bills: No Difficulty Paying for Meds: No Currently Unemployed: No Education: Associate Degree Difficulty w/ Childcare or Family Care: No Living arrangements: with family Spiritual care concerns: No Meds Home Medications and Allergies Home Medications ?Medication ?Instructions ?Recorded ?Confirmed ?Type losartan 25 mg tablet 25 mg PO DAILY 10/20/19 05/12/24 History aspirin 81 mg tablet 81 mg PO DAILY 12/03/20 05/12/24 History docusate sodium 100 mg capsule 100 mg PO DAILY 12/03/20 05/12/24 History (Colace) rivaroxaban 20 mg tablet (Xarelto) 20 mg PO DAILY 12/03/20 05/12/24 History atorvastatin 20 mg tablet 20 mg PO DAILY 01/30/23 05/12/24 History metoprolol succinate 50 mg 50 mg PO DAILY 01/30/23 05/12/24 History tablet,extended release 24 hr pediatric qdvzhjse-bjbj-chu 1 tablet PO DAILY 01/30/23 05/12/24 History (Multi-Vitamins with Iron chewable tablet) furosemide 40 mg tablet 40 mg PO QAM ankle swelling 02/18/23 05/12/24 History allopurinol 300 mg tablet 300 mg PO DAILY #90 tabs 11/25/23 05/12/24 Rx Allergies Allergy/AdvReac Type Severity Reaction Status Date / Time KELY Inhibitors AdvReac Intermediate Cough Verified 05/12/24 12:36 Vital Signs Vital Signs - 24 hr 05/12/24 12:38 Temperature 97.1 F L Pulse Rate 102 H Respiratory Rate 16 Blood Pressure 116/71 Pulse Oximetry 100 Oxygen Delivery Room Air Exam Const: General: comfortable and no acute distress HENMT: Face/Nose/Sinus: Normal nares present Eyes: General: appearance normal, both eyes and all related structures Neck: Neck: no JVD Resp: Auscultation: clear to auscultation bilaterally Cardio: Rate: regular rate Rhythm: regular rhythm GI: Inspection: non-distended GI Palp: Yes Soft to palpation Skin: General skin exam: normal color Neuro: Speech: normal speech Extrem: General: normal to inspection Psych: Mental Status: mental status grossly normal Assessment and Plan Assessment and plan (1) Positive colorectal cancer screening using Cologuard test: Code(s): R19.5 - Other fecal abnormalities Status: Acute Assessment and Plan: colonoscopy (2) Personal history of colonic polyps: Code(s): Z86.010 - Personal history of colon polyps Status: Acute
--- NOTE | 2024-05-12 13:39 | WPDANESEPPF ---
Anes - Initial Pre Proc Eval Procedure: Operation Date: 05/12/24 13:30 Proposed Procedures p Colonoscopy - Jeanmarie Mosley MD Date/Time: 05/12/24 13:39 Surgeon: Jeanmarie Mosley MD Pre Op Diagnosis: Fecal abnormalities Patient Data Age: 83 Gender: M Height: 1.83 m Weight: 103.8 kg Last Vital Signs Temp 97.1 F L 05/12/24 12:38 Pulse 102 H 05/12/24 12:38 Resp 16 05/12/24 12:38 BP 116/71 05/12/24 12:38 Pulse Ox 100 05/12/24 12:38 O2 Del Method Room Air 05/12/24 12:38 Allergies Allergy/AdvReac Type Severity Reaction Status Date / Time KELY Inhibitors AdvReac Intermediate Cough Verified 05/12/24 12:36 Home Medications ?Medication ?Instructions ?Recorded ?Confirmed ?Type losartan 25 mg tablet 25 mg PO DAILY 10/20/19 05/12/24 History aspirin 81 mg tablet 81 mg PO DAILY 12/03/20 05/12/24 History docusate sodium 100 mg capsule 100 mg PO DAILY 12/03/20 05/12/24 History (Colace) rivaroxaban 20 mg tablet (Xarelto) 20 mg PO DAILY 12/03/20 05/12/24 History atorvastatin 20 mg tablet 20 mg PO DAILY 01/30/23 05/12/24 History metoprolol succinate 50 mg 50 mg PO DAILY 01/30/23 05/12/24 History tablet,extended release 24 hr pediatric ysxcwzqx-ykty-ywq 1 tablet PO DAILY 01/30/23 05/12/24 History (Multi-Vitamins with Iron chewable tablet) furosemide 40 mg tablet 40 mg PO QAM ankle swelling 02/18/23 05/12/24 History allopurinol 300 mg tablet 300 mg PO DAILY #90 tabs 11/25/23 05/12/24 Rx Patient hx anesthesia problems: none Family hx anesthesia problems: none Results Review: All pre-operative results and documents have been reviewed as part of the pre-operative evaluation. 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 of 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 Family History Family History Father Family history of cardiovascular disease Hypertension Acute myocardial infarction Grandparent Diabetes mellitus Mother Patient's mother is Family history of malignant neoplasm of breast Other Family history of elevated blood lipids Social History Social History Smoking packs per day: 1 Smoking cigarettes per day: 20.0 Years smoked: 15 Smoking pack-years: 15.00 Smoking status: Former smoker (quit 46 years ago) Tobacco type: cigarettes Second hand tobacco smoke exposure: No Smoking end date: 02/09/74 Alcohol intake: current Drinks per week: 9 Alcohol use details: BEERS Substance use: never Substance use type: does not use Do You Feel Safe in your Home?: Yes Lack of Transportation: No Lack of Food: Never True Current Housing: I Have Housing Concerned About Future Housing: No Difficulty Paying Gas/Electric Bills: No Difficulty Paying for Meds: No Currently Unemployed: No Education: Associate Degree Difficulty w/ Childcare or Family Care: No Living arrangements: with family Spiritual care concerns: No Anes - Eval Final PreProcedure Day of Procedure 05/12/24 13:39 Patient weight: obese Heart: regular rate and rhythm and irregular rhythm Lungs: clear to auscultation Airway: Mallampati scale class II Neurological: alert and oriented Last oral intake: >/= 8 hours ASA classification: III Emergent: no Anesthetic plan: proceed Anesthesia type and monitoring: general GIVS and standard monitoring Results Review: All pre-operative results and documents have been reviewed as part of the pre-operative evaluation. Informed Consent: The patient's anesthetic plan and its attendant risks and benefits were discussed with the patient/family/POA. Questions were solicited and answers provided to the satisfaction of the patient/family/POA.
[2024-05-12 14:04] VITALS: BP 96/60; PULSE 74; RESP 19; O2SAT 98
[2024-05-12 14:14] VITALS: BP 93/56; PULSE 70; RESP 18; O2SAT 94
[2024-05-12 14:24] VITALS: PULSE 71; RESP 19; O2SAT 98
== END 2024-05-12 14:45 | disposition home or self-care (01) ==
PROVIDERS: PCP Family Medicine; Referring Provider Student in an Organized Health Care Education/Training Program; Visit Provider Internal Medicine Gastroenterology
PROC: 0DJD8ZZ Inspection of Lower Intestinal Tract, Via Natural or Artificial Opening Endoscopic (ICD-10-PCS; CPT 45378; principal; 2024-05-12 13:30)
DX: R19.5 Other fecal abnormalities (principal); D12.2 Benign neoplasm of ascending colon; K63.89 Other specified diseases of intestine; K57.30 Diverticulosis of large intestine without perforation or abscess without bleeding; K64.8 Other hemorrhoids; Z87.891 Personal history of nicotine dependence; I25.10 Atherosclerotic heart disease of native coronary artery without angina pectoris; Z95.1 Presence of aortocoronary bypass graft; Z79.01 Long term (current) use of anticoagulants
CPT/HCPCS: 45380; 45385; 88305; J2003; J2371; J2704; J7120